=== PATIENT | female | born 2000 | race Caucasian/White ===

== ENCOUNTER 2020-06-01 17:02 | Day surgery (SDC) | payer OTHER ==
[2020-06-01] MEDS ORDERED: hydrALAZINE 20 MG/ML VIAL SLOW IVP PRN ×2 (17:05→17:35)
[2020-06-01] MEDS ORDERED: Ibuprofen 800 MG TAB PO PRN (17:35)
[2020-06-01] MEDS ORDERED: Carboprost 250 MCG/ML AMP IM PRN (17:35)
[2020-06-01] MEDS ORDERED: Ondansetron PF 4 MG/2 ML Vial IVP PRN (17:35)
[2020-06-01] MEDS ORDERED: Promethazine HCl 25 MG/ML VIAL IM PRN (17:35)
[2020-06-01] MEDS ORDERED: Butorphanol Tartrate 1 MG/ML VIAL SLOW IVP PRN (17:35)
[2020-06-01] MEDS ORDERED: Methylergonovine 0.2 MG/ML VIAL IM PRN (17:35)
[2020-06-01] MEDS ORDERED: Diphenoxylate HCl/Atropine Tablet PO PRN ×2 (17:35)
[2020-06-01] MEDS ORDERED: Zolpidem Tartrate 5 MG TAB PO PRN (17:35)
[2020-06-01] MEDS ORDERED: HYDROcodone/Acetaminophen 5/325 mg Tablet PO PRN ×2 (17:35)
[2020-06-01] MEDS ORDERED: Docusate 100 MG CAP PO PRN (17:35)
[2020-06-01] MEDS ORDERED: Acetaminophen 500 MG TAB PO PRN (17:35)
[2020-06-01] MEDS ORDERED: Lidocaine 1% (PF) 30 ML VIAL SC PRN (17:35)
[2020-06-01] MEDS ORDERED: Misoprostol 200 MCG TAB PR PRN (17:35)
[2020-06-01] MEDS ORDERED: Lactated Ringer's 1,000 ML IV SCH (17:45)
[2020-06-01] MEDS ORDERED: Misoprostol 100 MCG TAB VAG SCH (17:45)
[2020-06-01] MEDS ORDERED: Penicillin G 2.5 MILL.units 2.5 MILL.UNITS in Premix Bag 1 BAG IVPB SCH (17:45)
[2020-06-01] MEDS ORDERED: Penicillin G Potassium 5 MILL.UNITS in Sodium Chloride 0.9% 100 ML IVPB SCH (17:45)
[2020-06-01 18:53] LABS: Hemoglobin 9.5 g/dL (12.0-15.5); Mean Corpuscular HGB CONC 30.4 g/dL (32.0-36.0); Mean Corpuscular Hemoglobin 22.1 pg (27.0-33.0); Mean Corpuscular Volume 72.6 fl (81.6-98.3); Mean Platelet Volume 11.7 fl (7.4-10.4); Platelet Count 255 10x3/uL (150-450); RBC Distribution Width 16.1 % (11.5-14.5)
[2020-06-01 19:13] VITALS: BMI 26.1
[2020-06-01] MEDS ORDERED: NS w/ Oxytocin 30 units 500 ML IVPB PRN (19:13)
[2020-06-01] MEDS ORDERED: NS w/ Oxytocin 30 units 500 ML IVPB SCH ×2 (19:15→19:30)
[2020-06-01 19:43] LABS: Syphilis Antibody Nonreactive (Nonreactive); Syphilis Antibody Index 0.04 S/CO (<1.00 Non-Reactive)
[2020-06-01 19:44] LABS: HIV (1/2) Antibody/Antigen Non-Reactive (NonReactive); HIV 1/2 INDEX 0.08 S/CO (<1.00); Hep B Surf Ag Non-Reactive S/CO (NonReactive)
[2020-06-01 19:47] LABS: HBSAg Index 0.28 S/CO (0-0.99)
[2020-06-02 10:08] LABS: Hep C IgG Ab Non-Reactive (NonReactive); Hep C Index 0.06 S/CO (0-0.79)
[2020-06-02 11:59] LABS: SARS-CoV-2 PCR by NAA Not Detected (NotDetected)
== END 2020-06-01 21:12 | disposition home health service (06) ==
LOC: CSHLD/OP 17:02 → CSHLD 17:03 → CSHLD/OP 21:12
PROVIDERS: ATTEND Obstetrics & Gynecology
DX: O99.891 Other specified diseases and conditions complicating pregnancy (principal); M54.9 Dorsalgia, unspecified; O09.33 Supervision of pregnancy with insufficient antenatal care, third trimester; Z3A.39 39 weeks gestation of pregnancy; Z20.822 Contact with and (suspected) exposure to COVID-19
CPT/HCPCS: 36415; 76816; 85027; 86780; 86803; 86850; 86900; 86901; 87081; 87340; 87389; 87635; 99285; U0003; U0005

== ENCOUNTER 2020-06-05 18:57 | Inpatient (IN) | payer OTHER ==
[2020-06-05] MEDS ORDERED: Methylergonovine 0.2 MG/ML VIAL IM PRN (19:37)
[2020-06-05] MEDS ORDERED: Lidocaine 1% (PF) 30 ML VIAL SC PRN (19:37)
[2020-06-05] MEDS ORDERED: hydrALAZINE 20 MG/ML VIAL SLOW IVP PRN (19:37)
[2020-06-05] MEDS ORDERED: Misoprostol 200 MCG TAB PR PRN (19:37)
[2020-06-05] MEDS ORDERED: Ibuprofen 800 MG TAB PO PRN (19:37)
[2020-06-05] MEDS ORDERED: Ondansetron PF 4 MG/2 ML Vial IVP PRN (19:37)
[2020-06-05] MEDS ORDERED: Promethazine HCl 25 MG/ML VIAL IM PRN (19:37)
[2020-06-05] MEDS ORDERED: Carboprost 250 MCG/ML AMP IM PRN (19:37)
[2020-06-05 19:38] VITALS: BMI 33.2
[2020-06-05] MEDS: Lactated Ringer's 1,000 ML IV SCH ×2 (19:45→21:28)
[2020-06-05] MEDS ORDERED: NS w/ Oxytocin 30 units 500 ML IV PRN (19:48)
[2020-06-05] MEDS ORDERED: NS w/ Oxytocin 30 units 500 ML IVPB SCH (20:00)
[2020-06-05 20:47] LABS: Mean Corpuscular Hemoglobin 22.3 pg (27.0-33.0); Mean Corpuscular Volume 71.8 fl (81.6-98.3); Mean Platelet Volume 11.2 fl (7.4-10.4); Platelet Count 271 10x3/uL (150-450); Red Blood Cell (RBC) Count 4.04 10x6/uL (3.90-5.03); White Blood Cell (WBC) Count 13.2 10x3/uL (3.5-10.5)
[2020-06-05 21:02] LABS: HBSAg Index 0.21 S/CO (0-0.99); HIV (1/2) Antibody/Antigen Non-Reactive (NonReactive); HIV 1/2 INDEX 0.06 S/CO (<1.00); Hep B Surf Ag Non-Reactive S/CO (NonReactive)
[2020-06-05 23:47] LABS: Amphetamine Not Detected (NotDetected); Barbiturates Screen Not Detected (NotDetected); Benzodiazepine Screen Not Detected (NotDetected); Cocaine Metabolite Screen Not Detected (NotDetected); Methadone Not Detected (NotDetected); Methamphetamine Not Detected (NotDetected); Opiate Screen Not Detected (NotDetected); Oxycodone Screen Not Detected (NotDetected); Phencyclidine (PCP) Not Detected (NotDetected); THC/Cannabinoid Screen Not Detected (NotDetected); Tricyclic Screen Not Detected (NotDetected)
[2020-06-06] MEDS ORDERED: Fentanyl 4 mcg/Bup 0.1% Cadd 100 ML ONE (11:30)
[2020-06-06] MEDS ORDERED: diphenhydrAMINE 50 MG/ML VIAL IVP PRN (14:59)
[2020-06-06] MEDS ORDERED: Naloxone HCl 0.4 mg/ml Vial IVP PRN ×2 (14:59)
[2020-06-06] MEDS ORDERED: Promethazine HCl 25 MG/ML VIAL IM PRN (14:59)
[2020-06-06] MEDS ORDERED: Acetaminophen 325 MG TAB PO PRN (14:59)
[2020-06-06] MEDS ORDERED: ePHEDrine 50 MG/ML VIAL SLOW IVP PRN (14:59)
[2020-06-06] MEDS ORDERED: Ondansetron PF 4 MG/2 ML Vial IVP PRN (14:59)
[2020-06-06] MEDS ORDERED: Lactated Ringer's 500 ML IV PRN (14:59)
[2020-06-06] MEDS ORDERED: Communication Order-Pharmacy FS SCH (15:00)
[2020-06-06] MEDS ORDERED: Fentanyl 4 mcg/Bupivacaine 0.1% Cassette 100 ML EPIDURAL SCH (15:00)
[2020-06-06] MEDS: Misoprostol 100 MCG TAB VAG SCH ×3 (18:53→20:03)
[2020-06-06] MEDS ORDERED: Calcium Carbonate 500 MG ChewTAB PO PRN (19:30)
[2020-06-06] MEDS ORDERED: Fentanyl 100 MCG/2 ML VIAL ONE (21:38)
[2020-06-06] MEDS ORDERED: Gentamicin 80 MG/2 ML VIAL IVPB SCH (23:45)
[2020-06-06] MEDS ORDERED: Ampicillin 2 GM VIAL ONE (23:56)
[2020-06-06] MEDS ORDERED: AMPicillin 2 GM in Dextrose 5% in Water 100 ML IVPB SCH (23:59)
[2020-06-06] MEDS ORDERED: Gentamicin 400 MG in Sodium Chloride 0.9% 100 ML IVPB SCH (23:59)
[2020-06-07] MEDS ORDERED: Methylergonovine 0.2 MG/ML VIAL ONE (00:02)
[2020-06-07] MEDS ORDERED: Misoprostol 200 MCG TAB ONE (00:02)
[2020-06-07] MEDS ORDERED: Lidocaine 1% (PF) 30 ML VIAL ONE (00:53)
[2020-06-07] MEDS: Misoprostol 100 MCG TAB VAG SCH ×2 (01:09→03:13)
[2020-06-07] MEDS: Lactated Ringer's 1,000 ML IV SCH (01:11)
[2020-06-07] MEDS ORDERED: Gentamicin 80 MG/2 ML VIAL IVPB SCH ×3 (02:00→19:15)
[2020-06-07] MEDS ORDERED: Milk Of Magnesia 30 ML UDCUP PO PRN (02:35)
[2020-06-07] MEDS ORDERED: Benzocaine-Menthol 82.5 ML CAN TOP PRN (02:35)
[2020-06-07] MEDS ORDERED: Preparation H Ointment 28 GM TUBE PR PRN (02:35)
[2020-06-07] MEDS ORDERED: diphenhydrAMINE 25 MG CAP PO PRN (02:35)
[2020-06-07] MEDS ORDERED: Bisacodyl 10 MG SUPP PR PRN (02:35)
[2020-06-07] MEDS ORDERED: Ondansetron PF 4 MG/2 ML Vial IVP PRN (02:35)
[2020-06-07] MEDS ORDERED: Lanolin Ointment 7 GM TUBE TOP PRN (02:35)
[2020-06-07] MEDS ORDERED: hydrALAZINE 20 MG/ML VIAL SLOW IVP PRN (02:35)
[2020-06-07] MEDS: Gentamicin Sulfate 80 MG in Premix Bag 1 BAG IVPB SCH ×2 (02:59→03:21)
[2020-06-07] MEDS ORDERED: NS w/ Oxytocin 30 units 500 ML IV SCH (03:00)
[2020-06-07] MEDS ORDERED: Ampicillin 250 MG VIAL ONE (03:15)
[2020-06-07] MEDS: Clindamycin/D5W 900 MG in Premix Bag 1 BAG IVPB SCH ×3 (03:24→18:29)
[2020-06-07] MEDS: Ibuprofen 800 MG TAB PO SCH ×3 (03:54→19:45)
[2020-06-07] MEDS ORDERED: Ibuprofen 800 MG TAB PO SCH (06:00)
[2020-06-07 07:26] LABS: #Basophils 0.1 10x3/uL (0.0-0.2); #Monocytes 1.8 10x3/uL (0.0-1.1); #Neutrophils 20.3 10x3/uL (1.5-8.4); %Basophils 0.2 % (0.0-2.0); %Lymphocytes 4.7 % (18.0-47.0); %Monocytes 7.5 % (0.0-10.0); %Neutrophils 86.9 % (40.0-75.0); Hemoglobin 8.1 g/dL (12.0-15.5); Mean Corpuscular HGB CONC 31.3 g/dL (32.0-36.0); Mean Corpuscular Hemoglobin 22.8 pg (27.0-33.0); Mean Platelet Volume 10.7 fl (7.4-10.4); Platelet Count 202 10x3/uL (150-450); RBC Distribution Width 16.4 % (11.5-14.5); Red Blood Cell (RBC) Count 3.55 10x6/uL (3.90-5.03); White Blood Cell (WBC) Count 23.4 10x3/uL (3.5-10.5)
[2020-06-07 08:04] LABS: Monocytes 9 % (0-4)
[2020-06-07 08:05] LABS: Band 15 % (5-11); Lymphocytes 3 % (28-48); MDiff Complete? YES; Neutrophil 73 % (31-61)
[2020-06-07 08:07] LABS: Microcytosis SLIGHT = 6-15 cells (100X) (0-5/hpf); Platelet Morphology Comment Appears Adequate
[2020-06-07] MEDS: Docusate Calcium (SURFAK) 240 MG CAP PO SCH ×2 (08:38→19:45)
[2020-06-07] MEDS: Prenatal Vitamin 1 TAB PO SCH (08:38)
[2020-06-07] MEDS ORDERED: Adacel (T-DAP) 0.5 ML SYRINGE IM ONE (09:00)
[2020-06-07] MEDS ORDERED: Clindamycin/D5W 900 mg/50 ml Premix Bag ONE ×2 (09:54→17:34)
[2020-06-07] MEDS ORDERED: Gentamicin 400 MG in Sodium Chloride 0.9% 100 ML IVPB SCH (20:00)
[2020-06-08] MEDS: Ibuprofen 800 MG TAB PO SCH ×3 (04:07→20:57)
[2020-06-08] MEDS: Docusate Calcium (SURFAK) 240 MG CAP PO SCH ×2 (08:25→20:57)
[2020-06-08] MEDS: Prenatal Vitamin 1 TAB PO SCH (08:25)
[2020-06-09] MEDS: Ibuprofen 800 MG TAB PO SCH ×2 (03:46→12:35)
[2020-06-09 12:40] VITALS: BP 117/61; TEMP 97.8
== END 2020-06-09 14:30 | disposition home or self-care (01) | DRG 805 ==
LOC: CSHLD 18:57 → CSHPP 06-07 03:33
PROVIDERS: ADMIT Emergency Medicine; ATTEND Emergency Medicine
PROC: 3E033VJ Introduction of Other Hormone into Peripheral Vein, Percutaneous Approach (ICD-10-PCS; 2020-06-05)
PROC: 10907ZC Drainage of Amniotic Fluid, Therapeutic from Products of Conception, Via Natural or Artificial Opening (ICD-10-PCS; 2020-06-06)
PROC: 10H07YZ Insertion of Other Device into Products of Conception, Via Natural or Artificial Opening (ICD-10-PCS; 2020-06-06)
PROC: 10D07Z6 Extraction of Products of Conception, Vacuum, Via Natural or Artificial Opening (ICD-10-PCS; principal; 2020-06-07)
PROC: 0KQM0ZZ Repair Perineum Muscle, Open Approach (ICD-10-PCS; 2020-06-07)
DX: O48.0 Post-term pregnancy (principal); O41.1230 Chorioamnionitis, third trimester, not applicable or unspecified; Z37.0 Single live birth; Z3A.40 40 weeks gestation of pregnancy; Z20.822 Contact with and (suspected) exposure to COVID-19; O76 Abnormality in fetal heart rate and rhythm complicating labor and delivery; D50.9 Iron deficiency anemia, unspecified; O99.02 Anemia complicating childbirth; O70.1 Second degree perineal laceration during delivery
CPT/HCPCS: 36415; 51702; 80306; 85025; 85027; 86850; 86900; 86901; 87340; 87389; J0290; J1580; J2001; J2405; J2590; J3490